=== PATIENT | female | born 1965 | race Caucasian/White ===

== ENCOUNTER 2021-03-19 11:25 | Day surgery (SDC) | payer MEDICARE, MEDICAID, SELFPAY ==
[2021-03-19] VITALS (7 sets, daily range): BP systolic 108–134; BP diastolic 61–78; PULSE 53–84; RESP 14–18; TEMP 36.2–36.6; O2SAT 98–100; BMI 24.9
--- NOTE | 2021-03-19 | PATH_ITS ---
[facility] Accession Number: [id number] . 01 Material submitted: . PART A: duodenum - DUODENUM PART B: stomach - STOMACH . 01 Clinical history: . A: R/O CELIAC . 02 Diagnosis: A. Duodenum, Biopsy: Duodenal mucosa with no diagnostic abnormality. Negative for active inflammation, features of sprue, dysplasia, or malignancy. . B. Stomach, Biopsy: Gastric body mucosa with no diagnostic abnormality. No evidence of Helicobacter organisms on H/E stain. Negative for intestinal metaplasia. Negative for dysplasia and malignancy. MRV 03/21/2021 1317 Local . 02 Electronically signed: . Jasen Carrillo MD, PhD, Pathologist NPI- [id number] . 01 Gross description: . Part A: DUODENUM: Received in formalin are 2 fragment(s) of estrada, soft tissue measuring 0.4 x 0.3 x 0.2 cm to 0.3 x 0.3 x 0.3 cm submitted entirely in 1 cassette(s) Part B: STOMACH: Received in formalin is 1 fragment(s) of estrada, soft tissue measuring 0.6 x 0.2 x 0.1 cm submitted entirely in 1 cassette(s) /LUIS A 03/20/2021 0458 Local . 02 Pathologist provided ICD-10: R10.9, K30 . 02 CPT . 839918, [id number] Performed at: 01 [facility] [address], [place], [place] [id number] MD Hany Soares MD Phone: [phone] [facility]formed at: 02 [facility] [address] [place], [place] [id number] MD Nirmala Sheikh MD Phone: [phone]
[2021-03-19 13:22] LABS: COVID19 -Nasal RAPID Negative (Negative)
[2021-03-19] MEDS: SODIUM CHLORIDE 0.9% 1,000 ML 125 ML IV (13:51)
--- NOTE | 2021-03-19 13:51 | P.HP_ITS ---
History of Present Illness History of Present Illness Date Patient Seen: 03/19/21 Chief complaint: EGD Narrative: Abdominal pain unresponsive to medications Patient History Medical History (Updated 03/19/21 @ 12:32 by Nina Vera RN) Eczema Jimena-Danlos syndrome Head injury, acute, with loss of consciousness History of bulimia History of enlarged adenoids History of suicide attempt Migraines Surgical History (Updated 03/19/21 @ 12:32 by Nina Vera RN) History of cholecystectomy History of fusion of cervical spine History of hernia repair Family & Social History Tobacco & Substance use: Smoking Status Never smoker Substance Use Type does not use Meds Home Medications and Allergies Home Medications Medication Instructions Recorded Confirmed Type vrjqchnier-qerlofcjpoxbs-mfjgcgvj 1 tab PO Q6H PRN 04/27/19 03/19/21 History 50 mg-325 mg-40 mg tablet acyclovir 200 mg capsule (Zovirax) 200 mg PO BID #0 cap 12/06/19 03/12/21 H istory dicyclomine 10 mg capsule 10 mg PO QID PRN 12/06/19 03/19/21 History methocarbamol 500 mg tablet 500 mg PO DAILY PRN tab 10/23/20 03/12/21 History fluoxetine 40 mg capsule 80 mg PO QAM #180 cap 03/12/21 03/19/21 Rx trazodone 100 mg tablet 200 mg PO HS #180 tab 03/12/21 03/12/21 Rx acetaminophen 500 mg tablet 500 mg PO BID 03/19/21 03/19/21 History acyclovir 400 mg tablet 400 mg PO BID 03/19/21 03/19/21 History Allergies Allergy/AdvReac Type Severity Reaction Status Date / Time morphine [MORPHINE] Allergy Unknown ITCH Verified 03/19/21 12:45 Exam Vital Signs (past 8 hours): Oxygen Delivery Method Room Air Narrative Exam Narrative: Oropharynx free of lesions Chest clear to auscultation percussion Cardiac exam reveals no S3 or murmur Objective Labs Labs: Laboratory Results - last 24 hr 03/19/21 12:22 SARS-CoV-2 (PCR) Negative Assessment & Plan Assessment & Plan narrative: Abdominal pain rule out peptic disease. EGD needs to be performed. Risks benefits alternatives have been explained.
--- NOTE | 2021-03-19 13:52 | P.OP.ENDO_ITS ---
Operative Date/Time/Diagnoses Date of procedure: 03/19/21 Pre-op diagnosis: See indication and findings Procedure & Clinicians Study performed: EGD Indications: Abdominal pain Surgeon: Johnny Li Procedure Notes Procedure in detail: After informed consent was obtained patient was placed in left lateral decubitus position. The video upper scope was placed into the oropharynx and with the patient's help swelled into the esophagus. The esophagus stomach and duodenum were carefully examined. On withdrawal retro flexed view the GE junction was performed. The scope was removed. The patient of the procedure well. Blood loss none Complications none Sedation Total sedation time 13 minutes Fentanyl 100 right g Versed 10 mg IV titration Findings 1. Normal esophagus without evidence for esophagitis or Chamorro's with squamocolumnar junction at approximately 41 cm. 2. small hiatal hernia of 1-2 cm in size 3. Striped gastric erythema in the antrum biopsies taken to rule out Helicobacter 4. Normal duodenal bulb and sweep biopsies taken to rule out celiac Patient will follow up with Dr. Palacios in the office.
[2021-03-19] MEDS: fentaNYL 250 MCG/5 ML INJ IV (13:55)
[2021-03-19] MEDS: MIDAZOLAM 5 MG/5 ML VIAL IV (14:04)
--- NOTE | 2021-03-19 14:44 | SUR.PHASEI ---
Report to DELFINA Thomas. Pt transferred to pacu phase 2 in stble condition sitting up drinking juice and talking with staff, ESTEBANS
== END 2021-03-19 15:54 | disposition home or self-care (01) ==
PROVIDERS: PCP Physician Assistant Medical; Referring Provider Internal Medicine Gastroenterology; Visit Provider Internal Medicine Gastroenterology
PROC: 0DJ08ZZ Inspection of Upper Intestinal Tract, Via Natural or Artificial Opening Endoscopic (ICD-10-PCS; CPT 43235; principal; 2021-03-19 13:00)
DX: R10.9 Unspecified abdominal pain (principal); K44.9 Diaphragmatic hernia without obstruction or gangrene; Q79.60 Ehlers-Danlos syndrome, unspecified; Z20.822 Contact with and (suspected) exposure to COVID-19
CPT/HCPCS: 43239; 87635; J2250; J3010